=== PATIENT | male | born 1950 | race Hispanic/Latino ===

== ENCOUNTER 2021-05-01 19:09 | Observation (INO) | payer MEDICARE ==
[~2021-05-01] VITALS: Ht 162.6 cm; Wt 66.7 kg
[2021-05-01 10:20] VITALS: BP 170/80
[2021-05-01 20:00] VITALS: BP 170/80
[2021-05-01 20:38] LABS: BASOPHILS # (AUTO) 0.1 (0.0-0.1); BASOPHILS % 0.6 % (0.0-1.0); EOSINOPHILS # (AUTO) 0.2 (0.0-0.4); EOSINOPHILS % 1.7 % (0.0-6.0); HEMATOCRIT 43.9 % (38.2-49.6); LYMPHOCYTES # (AUTO) 1.9 (1.0-3.2); LYMPHOCYTES % 17.7 % (18.0-39.1); MEAN CORPUSCULAR HEMOGLOBIN 32.3 pg (28-32); MEAN CORPUSCULAR HGB CONC 34.2 g/dL (31-35); MEAN CORPUSCULAR VOLUME 94.4 fL (81-99); MONOCYTES # (AUTO) 0.9 (0.2-0.8); MONOCYTES % 8.4 % (4.4-11.3); NEUTROPHILS # (AUTO) 7.5 (2.1-6.9); NEUTROPHILS % 70.6 % (38.7-80.0); PLATELET COUNT 269 x10e3/uL (140-360); RED BLOOD COUNT 4.65 x10e6/uL (4.3-5.7); RED CELL DISTRIBUTION WIDTH 12.3 % (11.7-14.4)
[2021-05-01 20:49] LABS: INR 0.89; PROTHROMBIN TIME 12.4 seconds (11.9-14.5)
[2021-05-01 20:56] LABS: ALBUMIN 3.8 g/dL (3.5-5.0); ANION GAP 14.5 mmol/L (8-16); CALCIUM 10.4 mg/dL (8.4-10.2); CREATININE, SERUM 0.92 mg/dL (0.72-1.25); POTASSIUM 4.5 mmol/L (3.5-5.1)
[2021-05-01] MEDS: SODIUM CHLORIDE 0.9% 1000ML 1,000 ML IV SCH (21:30)
[2021-05-01] MEDS: Morphine 4mg Syringe 4 MG/ML INJ IV PRN (21:30)
[2021-05-01] MEDS ORDERED: ONDANSETRON HCL INJ 2MG/ML 2ML 2 MG/ML VIAL IV PRN (22:00)
[2021-05-02] VITALS (7 sets, daily range): BP systolic 121–146; BP diastolic 65–80
[2021-05-02] MEDS: SODIUM CHLORIDE 0.9% 1000ML 1,000 ML IV SCH (01:05)
[2021-05-02] MEDS: Morphine 4mg Syringe 4 MG/ML INJ IV PRN (04:12)
[2021-05-02 06:03] LABS: BASOPHILS % 0.4 % (0.0-1.0); EOSINOPHILS # (AUTO) 0.1 (0.0-0.4); EOSINOPHILS % 1.4 % (0.0-6.0); HEMATOCRIT 39.7 % (38.2-49.6); HEMOGLOBIN 13.8 g/dL (14.0-18.0); LYMPHOCYTES # (AUTO) 1.6 (1.0-3.2); MEAN CORPUSCULAR HEMOGLOBIN 32.4 pg (28-32); MEAN CORPUSCULAR HGB CONC 34.8 g/dL (31-35); MEAN CORPUSCULAR VOLUME 93.2 fL (81-99); MONOCYTES # (AUTO) 0.8 (0.2-0.8); MONOCYTES % 8.8 % (4.4-11.3); NEUTROPHILS # (AUTO) 6.6 (2.1-6.9); NEUTROPHILS % 71.6 % (38.7-80.0); PLATELET COUNT 223 x10e3/uL (140-360); RED BLOOD COUNT 4.26 x10e6/uL (4.3-5.7); RED CELL DISTRIBUTION WIDTH 12.1 % (11.7-14.4)
[2021-05-02 06:29] LABS: ALBUMIN 3.2 g/dL (3.5-5.0); ANION GAP 11.5 mmol/L (8-16); CALCIUM 9.1 mg/dL (8.4-10.2); CREATININE, SERUM 0.83 mg/dL (0.72-1.25); POTASSIUM 4.5 mmol/L (3.5-5.1)
[2021-05-02] MEDS ORDERED: Vancomycin IV 1 GM VIAL ONE (08:51)
[2021-05-02] MEDS ORDERED: THROMBIN FOR SOLN 5,000 UNIT VIAL ONE (08:51)
[2021-05-02] MEDS ORDERED: LIDOCAINE 1% W/EPINEPHRINE 20 ML VIAL ONE (08:51)
[2021-05-02] MEDS ORDERED: PROMETHAZINE HCL (IM) 25 MG/ML VIAL IM PRN (11:00)
[2021-05-02] MEDS ORDERED: CARISOPRODOL 350 MG TAB PO PRN (11:00)
[2021-05-02] MEDS ORDERED: MAGNESIUM/ALUMINUM/SIMETHICONE 30 ML UDC PO PRN (11:00)
[2021-05-02] MEDS ORDERED: MORPHINE SULFATE 5 MG/ML VIAL IM PRN (11:00)
[2021-05-02] MEDS ORDERED: OXYCODONE/ACETAMINOPHEN 5-325 1 EACH TABLET PO PRN (11:00)
[2021-05-02] MEDS ORDERED: ACETAMINOPHEN 325 MG TAB PO PRN (11:00)
[2021-05-02] MEDS ORDERED: ONDANSETRON HCL INJ 2MG/ML 2ML 2 MG/ML VIAL IV PRN (11:00)
[2021-05-02] MEDS ORDERED: TAMSULOSIN HCL 0.4 MG CAP PO SCH (12:00)
[2021-05-02] MEDS: HYDROMORPHONE 2MG/ML 2 MG/ML ML IV PRN ×2 (12:57→20:26)
[2021-05-02] MEDS: Cefazolin 1 GM in SODIUM CHLORIDE 0.9% 50ML 50 ML IV SCH ×2 (14:47→22:12)
[2021-05-02] MEDS: LACTATED RINGER'S 1,000 ML IV SCH (14:47)
[2021-05-02] MEDS ORDERED: ZOLPIDEM TARTRATE 5 MG TAB PO PRN (21:00)
[2021-05-03] VITALS: BP 125/65
[2021-05-03] MEDS: LACTATED RINGER'S 1,000 ML IV SCH ×3 (01:23→12:38)
[2021-05-03 04:00] VITALS: BP 113/70
[2021-05-03] MEDS: Cefazolin 1 GM in SODIUM CHLORIDE 0.9% 50ML 50 ML IV SCH (05:30)
[2021-05-03 07:43] VITALS: BP 119/77
[2021-05-03] MEDS ORDERED: FENOFIBRATE 145 MG TAB PO SCH (09:00)
[2021-05-03] MEDS ORDERED: OMEPRAZOLE 20 MG CAP PO SCH (09:00)
[2021-05-03] MEDS ORDERED: FINASTERIDE 5 MG TAB PO SCH (09:00)
[2021-05-03 10:04] VITALS: BP 119/77
[2021-05-03 12:03] VITALS: BP 123/67
== END 2021-05-03 15:57 | disposition home or self-care (01) ==
LOC: ER 19:17 → ERHOLD 19:28 → MED/SURG 22:10
PROVIDERS: ADMIT Family Medicine; ATTEND Family Medicine
DX: M51.16 Intervertebral disc disorders with radiculopathy, lumbar region (principal); I10 Essential (primary) hypertension; N40.0 Benign prostatic hyperplasia without lower urinary tract symptoms; E78.5 Hyperlipidemia, unspecified; K21.00 Gastro-esophageal reflux disease with esophagitis, without bleeding; Z20.822 Contact with and (suspected) exposure to COVID-19
CPT/HCPCS: 36415 ×2; 63056; 71045; 72020; 80053 ×2; 85025 ×2; 85610; 88304; 93005; 96360; 96361 ×2; 97116; 97139; 97161; 99284; G0378 ×3; J0690 ×2; J1170; J2270 ×2; J2405; J3370; J7030 ×2; J7121; U0002